=== PATIENT | female | born 1995 | race Caucasian/White ===

== ENCOUNTER 2024-05-19 16:02 | Emergency (ER) | payer BC, OTHER, SELFPAY ==
--- NOTE | ~2024-05-19 | XR_ITS ---
XR chest 2V Ordering provider: Kwaku Alva MD History: 28 years Female with . left sided CP AND SOB X 1 DAY . Comparison: None. FINDINGS: MEDIASTINUM: The cardiac silhouette is not enlarged. LUNGS: No infiltrates, effusions or pneumothorax. OTHER: No free air under the diaphragm. IMPRESSION: No acute cardiopulmonary pathology. Reviewed, dictated and finalized at location A.
--- NOTE | 2024-05-19 16:03 | ECG_ITS ---
Test Date: 2024-05-19 16:09:59 Measurements Intervals [place] Rate: 73 P: 61 [place]: 121 QRS: 70 QRSD: 79 T: 53 QT: 372 QTc: 412 Interpretive Statements SINUS RHYTHM INCOMPLETE RIGHT BUNDLE BRANCH BLOCK No previous ECG available for comparison Electronically Signed On 05-20-2024 09:23:39 CDT by Maria Eugenia Mae M.D.
[2024-05-19 16:12] VITALS: BP 117/59; PULSE 85; RESP 17; TEMP 36.8; O2SAT 100
[2024-05-19 16:22] LABS: Basophils Percent Auto 0.5 % (0.2-1.2); Eosinophils Absolute Auto 0.1 K/mm3 (0-0.3); Eosinophils Percent Auto 1.2 % (0-4.4); Hematocrit 41.8 % (37.0-47.0); Hemoglobin 14.2 g/dL (12.0-15.0); Immature Granulocyte Absolute 0.02 K/mm3 (0.00-0.031); Immature Granulocyte Percent A 0.2 % (0-0.5); Lymphocytes Percent Auto 33.7 % (18.3-44.2); Mean Corpuscular Volume 94.1 fl (80-100); Mean Platelet Volume 11.5 fl (7.4-10.4); Monocytes Absolute Auto 0.6 K/mm3 (0.1-0.6); Monocytes Percent Auto 7.5 % (2.6-8.5); Neutrophils Absolute Auto 4.7 K/mm3 (1.3-6.7); Neutrophils Percent Auto 56.9 % (45.5-73.1); Platelet Count Result 211 k/mm3 (150-375); Red Blood Count 4.44 M/mm3 (4.2-5.4); Red Cell Distribution Width 12.2 % (11.5-14.5); White Blood Count 8.3 K/mm3 (4.5-10.0)
[2024-05-19 16:36] LABS: Alanine Aminotransferase 11 U/L (6-35); Albumin Level 4.9 g/dL (3.5-5.1); Alkaline Phosphatase 46 U/L (38-126); Anion Gap 11 mmol/L (4-12); Aspartate Amino Transferase 22 U/L (14-36); Bilirubin,Total 0.5 mg/dL (0.2-1.3); Blood Urea Nitrogen 12 mg/dL (7-17); Calcium 9.2 mg/dL (8.4-10.2); Carbon Dioxide 29 mmol/L (22-30); Chloride 99 mmol/L (98-107); Estimated CRCL calculation 75 ml/min; Estimated Glomerular Filt Rate > 60; Glucose 97 mg/dL (65-110); Lipase 94 U/L (23-300); Potassium 3.9 mmol/L (3.4-5.0); Sodium 139 mmol/L (137-145)
[2024-05-19 16:37] LABS: INR 0.9; Partial Thromboplastin Time 27.4 Seconds (22.3-36.8); Prothrombin Time 12.9 Seconds (11.1-14.7)
[2024-05-19 16:48] LABS: Troponin I < 0.012 ng/mL (0.000-0.034)
--- NOTE | 2024-05-19 18:52 | ED.CHESTPAIN ---
HPI - Chest Pain General Chief Complaint: Chest Pain Stated Complaint: left sided CP since last night Time Seen by Provider: 05/19/24 18:50 Source: patient Mode of arrival: ambulatory Limitations: no limitations History of Present Illness HPI narrative: This is a 28-year-old female that presents to the emergency department for left-sided chest pain. Ongoing since last night. Reports the pain is sharp and intermittent in nature. Sometimes worse with certain movement. She has not taken anything for pain. Reports feelings of some difficulty breathing as well. Denies lower extremity edema. Related Data Allergies Allergy/AdvReac Type Severity Reaction Status Date / Time No Known Allergies Allergy Mild Unverified 01/11/23 15:07 Review of Systems Review of Systems: CONSTITUTIONAL: Denies fever CARDIOVASCULAR: Reports chest pain. Denies palpitations, or edema. RESPIRATORY: Reports dyspnea. All systems reviewed & are unremarkable except as noted in HPI and below PMFSH Past Medical History Medical History (Updated 05/19/24 @ 20:38 by Norma Kang PA-C) No active medical problems Social History Social History (Updated 05/19/24 @ 19:14 by Norma Kang PA-C) Smoking status: Never smoker Exam Narrative: GENERAL: Well-appearing, well-nourished, and in no acute distress. HEAD: Normocephalic, atraumatic. EYES: EOMI. CHEST: Clear to auscultation. No respiratory distress. No wheezes rales or rhonchi. Palpation of chest wall reproduces pain HEART: Regular rate and rhythm. No murmur heard. Normal peripheral pulses. ABDOMEN: Soft, nontender, nondistended, normal active bowel sounds. EXTREMITIES: Normal range of motion. No edema. SKIN: Warm, dry, no rash. NEURO: No focal deficits. Alert and oriented x3. PSYCH: Normal mood and affect Course Course Emergency Course: Patient updated on her workup and agrees with plan of care Vital Signs Vital signs: Vital Signs Temperature 98.3 F 05/19/24 16:12 Pulse Rate 85 05/19/24 16:12 Respiratory Rate 17 05/19/24 16:12 Blood Pressure 117/59 L 05/19/24 16:12 Pulse Oximetry 100 05/19/24 16:12 Oxygen Delivery Room Air 05/19/24 16:12 Temperature 98.3 F 05/19/24 16:12 Pulse Rate 85 05/19/24 16:12 Respiratory Rate 17 05/19/24 16:12 Blood Pressure 117/59 L 05/19/24 16:12 Pulse Oximetry 100 05/19/24 16:12 Oxygen Delivery Room Air 05/19/24 18:58 MDM - Chest Pain MDM Narrative Medical decision making narrative: patient presents to the emergency department for sharp, intermittent left-sided chest pain ongoing since yesterday. Pain is reproducible with palpation. Her vitals are stable. CBC and metabolic panel without concerning findings. EKG without concerning changes and baseline and 3 hour troponin are negative. D-dimer is not elevated. Chest x-ray without acute cardiopulmonary abnormality. Patient was updated on her workup and agrees with plan of care. She is to follow up with primary provider. She was given warnings to return to the ER Differential Diagnosis Differential diagnosis: Likely atypical chest pain, costochondritis and other ( pneumonia, PE) Lab Data Attestation: I reviewed the patient's lab results. 05/19/24 16:17 05/19/24 16:17 Labs: Lab Results 05/19/24 05/19/24 Range/Units 16:17 19:17 WBC 8.3 (4.5-10.0) K/mm3 RBC 4.44 (4.2-5.4) M/mm3 Hgb 14.2 (12.0-15.0) g/dL Hct 41.8 (37.0-47.0) % MCV 94.1 (80-100) fl MCH 32.0 (26-34) pg MCHC 34.0 (32-36) g/dl RDW 12.2 (11.5-14.5) % Plt Count 211 (150-375) k/mm3 MPV 11.5 H (7.4-10.4) fl Immature Gran % (Auto) 0.2 (0-0.5) % Neut % (Auto) 56.9 (45.5-73.1) % Lymph % (Auto) 33.7 (18.3-44.2) % Door % (Auto) 7.5 (2.6-8.5) % Eos % (Auto) 1.2 (0-4.4) % Baso % (Auto) 0.5 (0.2-1.2) % Lymph # (Auto) 2.80 (0.9-3.2) K/mm3 Door # (Auto) 0.6 (0.1-0.6) K/mm3 Eos # (
[2024-05-19] MEDS: ACETAMINOPHEN 500 MG TABLET 1000 MG PO (19:12)
[2024-05-19 19:47] LABS: Troponin I < 0.012 ng/mL (0.000-0.034)
[2024-05-19 20:19] LABS: D Dimer < 0.27 ug/mL (<0.48)
[2024-05-19 20:56] VITALS: BP 113/71; PULSE 80; RESP 16; TEMP 36.6; O2SAT 98
[2024-05-19 21:00] VITALS: BP 113/71; PULSE 72; RESP 15; O2SAT 100
== END 2024-05-19 21:00 | disposition home or self-care (01) ==
PROVIDERS: Emergency Medicine; Emergency Provider Physician Assistant
DX: R07.89 Other chest pain (principal); I45.10 Unspecified right bundle-branch block
CPT/HCPCS: 36415; 71046; 80053; 83690; 84484; 85025; 85380; 85610; 85730; 93005; 99284; A9270